=== PATIENT | female | born 1975 ===

== ENCOUNTER 2022-05-29 18:50 | Emergency (ER) | payer SELFPAY ==
[2022-05-29] MEDS ORDERED: Ketorolac 60 MG/2 ML SDV IM ONE (20:26)
== END 2022-05-29 21:07 | disposition home or self-care (01) ==
LOC: JD.ED 18:50
DX: S46.911A Strain of unspecified muscle, fascia and tendon at shoulder and upper arm level, right arm, initial encounter (principal)
CPT/HCPCS: 73030; 96372; 99283; J1885